=== PATIENT | female | born 1980 | race Caucasian/White ===

== ENCOUNTER → 2016-12-19 | Outpatient (CLI) | payer OTHER ==
[~2016-12-19] MED LIST: TRAM-10 PO; VNTHFA/IN INH; ZTHM250 PO
--- NOTE | 2016-12-19 09:32 | DIAGNOSTIC IMAGING REPORT ---
LEFT WRIST MIN 3 VIEWS ROUTINE CLINICAL HISTORY: LEFT WRIST INJURY trauma. Pain. COMPARISON: None. DISCUSSION: Several tiny ossific fragments are identified adjacent to the pisiform. All remaining osseous structures are unremarkable. Alignment is anatomic. There is no evidence for soft tissue swelling. IMPRESSION: Several tiny avulsions immediately adjacent to and originating from the pisiform. Study is otherwise negative Electronically signed by: Gregory Redding M.D. 12/19/2016 9:31 AM Dictated Date/Time: 12/19/2016 9:21 AM
== END | disposition home or self-care (01) ==
LOC: C.RAD1850 09:03
PROVIDERS: ATTEND Student in an Organized Health Care Education/Training Program
DX: S69.92XA Unspecified injury of left wrist, hand and finger(s), initial encounter (principal); X58.XXXA Exposure to other specified factors, initial encounter

== ENCOUNTER 2017-02-28 23:02 | Emergency (ER) | payer OTHER ==
[~2017-02-28] VITALS: Ht 165.1 cm; Wt 102.1 kg
[~2017-02-28 23:02] MED LIST changes: +AZIT-57 PO; -TRAM-10 PO; -VNTHFA/IN INH; -ZTHM250 PO
[2017-02-28 23:14] VITALS: TEMP 36.5; Ht 165.1 cm; Wt 102.1 kg
[2017-02-28] MEDS ORDERED: TRAM-10 PO (23:46)
--- NOTE | 2017-02-28 23:59 | EMERGENCY ROOM VISIT NOTE ---
History First contact with patient: 23:18 Chief Complaint: WRIST PAIN Stated Complaint: LT WRIST PAIN/INJURY History of Present Illness The patient is a 36 year old female who presents to the Emergency Room with complaints of persistent left wrist pain, swelling and numbness of her fingers. The patient reports that she fell over 2 months ago. Her family doctor ordered an x-ray of the wrist, and was then referred to Dr. Arguello at [facility]. The patient reports that "the office really did not seem to care about my injury." A wrist brace was applied, and was told to wear this continuously for 4 weeks, removing it twice a day to flex and extend the wrist. After a month, she then took the brace off and has had worsening symptoms since that time. She admits that she did not contact her family doctor's office or Sports Medicine. She denies any recent injury to the wrist since her fall. She now reports occasional pain radiating up along the forearm to her elbow. 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 She has taken ibuprofen and Tylenol without relief, and rates her discomfort a 5 out of 10. The patient is [id number]. Review of Systems 10 system review was performed and was negative except for pertinent positives and negatives as indicated in history of present illness Past Medical/Surgical History Medical Problems: (1) Acute cholecystitis (2) Gestational hypertension (3) Insulin dependent gestational diabetes mellitus (GDM), antepartum (4) No Known Active Medical Problems (5) Pneumonia (6) Term (7) Tonsillectomy and adenoidectomy (8) [place] Teeth Removal Family History Diabetes mellitus Social History Smoking Status: Former Smoker Alcohol Use: occasionally Marital Status: single Housing Status: lives with family Occupation Status: employed Current/Historical Medications Scheduled Azithromycin (Azithromycin), 1 TAB PO DAILY Scheduled PRN Tramadol (Ultram), 1-2 TAB PO Q4H PRN for Pain Allergies Coded Allergies: BEE STING (Verified Allergy, Mild, 09/11/16) Physical Exam Vital Signs Date Time Temp Pulse Resp B/P Pulse Ox O2 Delivery O2 Flow Rate FiO2 02/28/17 23:14 36.5 96 18 133/85 93 Room Air Physical Exam CONSTITUTIONAL: Healthy and well nourished. Alert and oriented X 3 with positive affect. HEENT: Normocephalic, atraumatic. Pupils equal, round and reactive. NECK: Full active range of motion without discomfort. Negative lateral gaze test. No focal tenderness through the central cervical spine or paraspinous muscles. MUSCULOSKELETAL: Examination shows notable edema over the ulnar aspect of the wrist with tenderness to palpation. Palpating this region causes the pain to radiate up the ulnar aspect of the forearm. She also has a positive compression test at the cubital tunnel, reproducing pain into her wrist and fourth and fifth fingers. She has weak fuel cell assembler. She has mild edema of the hand. Negative anatomic snuffbox tenderness. She is tender through the carpal canal as well with positive Phalen's and positive Tinel. Capillary refill is less than 2 seconds. INTEGUMENTARY: No rash or other significant dermatologic conditions noted. NEUROLOGIC: Left hand radial motor and sensory is intact. Otherwise, see further details above. Medical Decision & Procedures ED Course Patient history and physical exam were performed. Nurse's notes were reviewed. I did review the patient's x-rays from 12/19/16, showing tiny fragments adjacent to the piece of foreign bone. It is difficult to tell if these are acute or chronic in nature. Otherwise no additional fractures or carpal bone dislocations noted. It appears that the patient is frustrated with the care she received from [facility]. The patient reported that she would prefer to follow-up with Dr. Finley, but did call their office in a would not see her without further reviewed. When asked if she needs a referral with her insurance, she is uncertain, and thinks that may have been why they would not see her. I encouraged her to call her insurance carrier to see if she does state a referral if she does, she will need to contact her family doctor. In the meantime, I suggested that she continue with intermittent application of ice. Range of motion exercises to prevent stiffness. A wrist lacer was dispensed that she can wear when active. She was encouraged to alternate ibuprofen and Tylenol for baseline pain relief. She was provided a home pack and prescription for Ultram as needed for breakthrough pain. She did not want any medication that would make her drowsy since she has a [id number] infant at home. The patient was happy with plan of care, voiced understanding of all discharge instructions, refused any analgesics while in the emergency department, and rated her discomfort a 4 out of 10 at the conclusion of my exam. Medical Decision Patient presents with persistent swelling, pain and paresthesias of the left wrist and hand region. Her clinical exam is consistent with a component of ulnar neuritis. She also has a component consistent with carpal tunnel neuritis as well. It is possible that she could have other extensive soft tissue injuries that may warrant an MRI evaluation of the wrist. I suspect that an inflammatory component is also a major contributor to her persistent pain. Because the patient has had no trauma since her last x-ray, I do not feel that further x-ray or CT studies are warranted. Impression Primary Impression: Left wrist pain Additional Impression: Neuritis of left ulnar nerve Departure Information Dispostion Home / Self-Care Prescriptions Tramadol (Ultram) 50 Mg Tab 1-2 TAB PO Q4H Y for Pain, #30 TAB For Initial Treatment Prov: Prashanth Isaac PA 02/28/17 Forms HOME CARE DOCUMENTATION FORM, IMPORTANT VISIT INFORMATION Patient Instructions My [facility] Additional Instructions Continue to intermittently apply ice to wrist. Perform range of motion exercises to prevent stiffness. Wear a wrist brace when active to avoid any further injury. Ibuprofen 600 mg and/or Tylenol 1000 mg every 8 hours. You may also alternate these medications for more effective pain relief: Ibuprofen --4 HRS--> Tylenol --4 HRS--> ibuprofen --4 HRS--> Tylenol .... Ultram if needed for worse pain. Call your insurance carrier to see if you need a referral to see a specialist. If you do not need a referral, you may contact Dr. Finley's office directly, and tell them that you were reevaluated in the emergency department. If you need a referral, contact your family doctor. Problem Qualifiers
[2017-03-01] MEDS ORDERED: TRAMADOL HCL 50 MG HOME PACK PO ONE
[2017-03-01 00:15] VITALS: BP 133/95; PULSE 100; O2SAT 96
== END 2017-03-01 00:16 | disposition home or self-care (01) ==
LOC: C.EDB 23:04
DX: M25.532 Pain in left wrist (principal); G56.21 Lesion of ulnar nerve, right upper limb; M79.89 Other specified soft tissue disorders; R20.0 Anesthesia of skin; Z87.09 Personal history of other diseases of the respiratory system; Z87.19 Personal history of other diseases of the digestive system; Z87.891 Personal history of nicotine dependence; Z83.3 Family history of diabetes mellitus

== ENCOUNTER → 2017-06-26 | Outpatient (CLI) | payer OTHER ==
[~2017-06-26] MED LIST changes: -AZIT-57 PO; +GADAVIST IV PRN; +TRAM-10 PO
--- NOTE | 2017-06-26 13:37 | DIAGNOSTIC IMAGING REPORT ---
FLUOROSCOPICALLY GUIDED WRIST ARTHROGRAM PRIOR TO MRI CLINICAL HISTORY: Left wrist pain following injury. FLUOROSCOPY TIME: 17 seconds. FINDINGS: 1 fluoroscopic image was obtained. The procedure, risks and benefits were discussed with the patient. The patient agreed to the procedure and informed written consent was obtained. The procedure was performed by Dr. Kelly following a timeout. Skin overlying the radiocarpal articulation was prepped and draped in sterile fashion and local anesthesia was achieved with 1% lidocaine. Under intermittent fluoroscopic guidance, a 1 1/2 inch 22-gauge needle was directed into the radiocarpal articulation between the scaphoid and the radius. Positioning within the joint space was confirmed with injection of a small amount of contrast. At this time, 4 cc of a mixture of 0.1 cc of gadolinium, 10 cc of normal saline and 10 cc of Optiray 300 was injected into the radiocarpal joint. Needle was removed. Patient tolerated the procedure well and no immediate complications were evident. Patient was transported to MRI. IMPRESSION: Fluoroscopically guided left wrist arthrogram prior to MRI. Electronically signed by: Victor Hugo Kelly M.D. 06/26/2017 1:36 PM Dictated Date/Time: 06/26/2017 1:34 PM
--- NOTE | 2017-06-26 14:19 | DIAGNOSTIC IMAGING REPORT ---
MRI OF THE LEFT WRIST POST GADOLINIUM ARTHROGRAM CLINICAL HISTORY: LT WRIST PAIN history of trauma COMPARISON STUDY: Conventional radiographic study dated 12/19/2016 FINDINGS: Imaging was performed in the axial sagittal anterolisthesis of RDS a little linear subchondral edema and she appears to cause is a fusiform fracture fragments what what what sequence normal in monofilament textbooks as usual the lung coronal planes. Imaging was performed subsequent to a gadolinium arthrographic injection. There is minimal subchondral marrow edema within the lunate. There is a tear of the ulnar styloid attachment of the triangular fibrocartilage. There is a probable tear of the ulnar collateral ligament. There is disruption of the meniscal homologue. There are a few equivocal tiny loose bodies. IMPRESSION: 1. Tear of the ulnar styloid attachment of the triangle fibrocartilage with an associated tear of the meniscal homologue 2. Probable tear of the ulnar collateral ligament 3. Small focus of subchondral marrow edema within the proximal lunate Electronically signed by: Angelo Milligan M.D. 06/26/2017 2:18 PM Dictated Date/Time: 06/26/2017 2:04 PM
== END | disposition home or self-care (01) ==
LOC: C.MRIBC 12:52
PROVIDERS: ATTEND Internal Medicine
DX: M25.532 Pain in left wrist (principal); S63.592A Other specified sprain of left wrist, initial encounter; X58.XXXA Exposure to other specified factors, initial encounter; R60.0 Localized edema